=== PATIENT | female | born 1985 | race American Indian/Alaskan Native ===

== ENCOUNTER 2021-05-26 14:42 | Emergency (ER) | payer MEDICAID ==
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
[2021-05-26 15:46] VITALS: BP 122/70
== END 2021-05-26 16:12 | disposition home or self-care (01) ==
LOC: ED 14:42
DX: J34.89 Other specified disorders of nose and nasal sinuses (principal); M54.6 Pain in thoracic spine; V89.2XXA Person injured in unspecified motor-vehicle accident, traffic, initial encounter; Y93.89 Activity, other specified; Y92.89 Other specified places as the place of occurrence of the external cause; Y99.8 Other external cause status
CPT/HCPCS: 99282